=== PATIENT | male | born 1965 | race Caucasian/White ===

== ENCOUNTER 2024-04-23 13:26 | Outpatient (CLI) | payer BC, SELFPAY ==
--- NOTE | 2024-04-23 14:40 | W.ANESCHARGE ---
Anesthesia Charges Start Date/Time Anesthesia Start Date: 04/23/24 Anesthesia Start Time: 14:13 Stop Date/Time Anesthesia Stop Date: 04/23/24 Anesthesia Stop Time: 14:38
--- NOTE | 2024-04-23 14:40 | W.ANESCHARGE ---
Anesthesia Charges Start Date/Time Anesthesia Start Date: 04/23/24 Anesthesia Start Time: 14:13 Stop Date/Time Anesthesia Stop Date: 04/23/24 Anesthesia Stop Time: 14:38
== END 2024-04-23 13:27 | disposition home or self-care (01) ==
LOC: OP CLINIC 13:28
PROVIDERS: PCP Family Medicine; Visit Provider Internal Medicine Gastroenterology
DX: Z12.11 Encounter for screening for malignant neoplasm of colon (principal); D12.5 Benign neoplasm of sigmoid colon; K57.30 Diverticulosis of large intestine without perforation or abscess without bleeding; Z86.0101 Personal history of adenomatous and serrated colon polyps
CPT/HCPCS: 00811; 45385; 88305; J2704